=== PATIENT | female | born 1990 | race American Indian/Alaskan Native ===

== ENCOUNTER 2017-11-06 13:26 | Emergency (ER) | payer BC ==
--- NOTE | 2017-11-06 20:45 | Emergency Department Report ---
Minor Respiratory - HPI Chief Complaint: Upper Respiratory Infection Stated Complaint: FLU SYMPTOMS Time Seen by Provider: 11/06/17 20:40 Duration: 3 Days Pain Location: Other (generalized body aches) Severity: moderate Minor Respiratory: Yes Rhinorrhea, Yes Able to Tolerate Fluids, Yes Cough, Yes Sick Contacts (children came home sick from grandparents), Yes Fever, No Sore Throat, No Ear Pain, No Hemoptysis, No Chest Pain, No Shortness of Breath Other History: This is a 27 y.o. female presents with congestion, body aches, fever, nausea, vomiting, diarrhea, chills, and headache. Patient states her children came home from grandparents sick. She began to fill bad 3 days ago. She took Dayquil for two days with minimal improvement. "It is hard to get out of bed, due to the aches and pains". Denies chest pain, SOB, wheezing , numbness, and tingling. ED Review of Systems ROS: Stated complaint: FLU SYMPTOMS Other details as noted in HPI Constitutional: chills, fever, malaise. denies: diaphoresis, weakness Eyes: denies: eye pain, eye discharge, vision change ENT: as per HPI, congestion. denies: ear pain, throat pain, dental pain, hearing loss, epistaxis Respiratory: see HPI, cough. denies: orthopnea, shortness of breath, SOB with exertion, SOB at rest, stridor, wheezing Cardiovascular: denies: chest pain, palpitations, edema Gastrointestinal: as per HPI, nausea, vomiting, diarrhea. denies: constipation , hematemesis, melena, hematochezia Musculoskeletal: myalgia Neurological: denies: headache, weakness, paresthesias ED Past Medical Hx - Past Medical History Previous Medical History?: No - Surgical History Past Surgical History?: Yes Additional Surgical History: c section - Social History Smoking Status: Never Smoker Substance Use Type: None - Medications Home Medications: Home Medications Medication Instructions Recorded Confirmed Last Taken Type Benzonatate 200 mg PO TID PRN #30 capsule 11/06/17 Unknown Rx Fluticasone [Flonase] 1 spray NS QDAY #1 bottle 11/06/17 Unknown Rx Ondansetron [Zofran TAB] 4 mg PO Q8HR PRN #20 tablet 11/06/17 Unknown Rx Oseltamivir [Tamiflu] 75 mg PO BID 5 Days #10 cap 11/06/17 Unknown Rx Minor Respiratory Exam - Exam General: Vital signs noted. No distress. Alert and acting appropriately. HEENT: Yes Pharyngeal Erythema, Yes Moist Mucous Membranes, Yes Rhinorrhea ( mucoid, turbinates red and swollen), Yes Frontal Tenderness, No Pharyngeal Exudates, No Conjuctival Injection, No Maxillary Tenderness Ear: Neither TM Bulge, Neither TM Erythema, Neither EAC Pain, Neither EAC Discharge Neck: Yes Supple, No Adenopathy Lungs: Yes Good Air Exchange, Yes Cough, No Wheezes, No Ronchi, No Stridor, No Labored Respirations, No Retractions, No Use of Accessory Muscles, No Other Abnormal Lung Sounds Heart: Yes Regular, No Murmur Abdomen: Yes Normal Bowel Sounds, No Tenderness, No Peritoneal Signs Skin: No Rash, No Edema Neurologic: Alert and oriented, no deficits. Musculoskeletal: Unremarkable. ED Course Vital Signs 11/06/17 14:20 Temperature 99.5 F Pulse Rate 115 H Respiratory 16 Rate Blood Pressure 110/60 O2 Sat by Pulse 99 Oximetry ED Medical Decision Making - Medical Decision Making This is a 27 y.o. female presents with flu-like symptoms for 3 days. Children return home 4 days ago sick. She took Dayquil for 2 days with minimal improvement. She didn't get influenza immunization this season. Positive influenza A. Influnza A: start tamiflu, benzonatate, zofran, flonase Critical care attestation.: If time is entered above; I have spent that time in minutes in the direct care of this critically ill patient, excluding procedure time. ED Disposition Clinical Impression: Influenza A Disposition: DC-01 TO HOME OR SELFCARE Is pt being admited?: No Does the pt Need Aspirin: No Condition: Stable Instructions: Influenza (ED) Additional Instructions: Increase fluid intake. Wash hands frequently to decrease spread of infection. Complete medication as prescribed. Continue taking tylenol or ibuprofen for fever control. Rest and avoid large crowds to decrease spread of infection. Follow up with Primary Care Provider. Return to ER if fever, SOB, difficulty breathing, and chest pain. Prescriptions: Benzonatate 200 mg PO TID PRN #30 capsule PRN Reason: Cough Fluticasone [Flonase] 1 spray NS QDAY #1 bottle Ondansetron [Zofran TAB] 4 mg PO Q8HR PRN #20 tablet PRN Reason: Nausea Oseltamivir [Tamiflu] 75 mg PO BID 5 Days #10 cap Referrals: PRIMARY CARE,MD [Primary Care Provider] - 3-5 Days [facility] [Outside] - 3-5 Days [facility] [Outside] - 3-5 Days Forms: Work/School Release Form(ED) Time of Disposition: 21:57 Print Language: ALBAN[place]
[2017-11-06 22:09] VITALS: BP 104/58
== END 2017-11-06 22:09 | disposition home or self-care (01) ==
LOC: ED 13:26
DX: J09.X1 Influenza due to identified novel influenza A virus with pneumonia (principal)
CPT/HCPCS: 87400; 99282